=== PATIENT | female | born 2000 | race Caucasian/White ===

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

== ENCOUNTER → 2023-08-12 | Outpatient (CLI) | payer BC ==
--- NOTE | 2023-08-12 13:41 | P.SLEEP ---
History of Present Illness DATE: 08/12/2023 CONSULTATION/NEW PATIENT EVALUATION HISTORY OF PRESENT ILLNESS/SLEEP-WAKE EVALUATION: 22-year-old lady had been evaluated in the sleep center for possible obstructive sleep apnea hypopnea syndrome. SLEEP SCHEDULE: Usually sleep schedule from midnight until 10 AM on weekdays and from 1 AM until noon on weekend. FALLING ASLEEP: Patient does have difficulties with falling asleep, has TV set and bedroom. DURING SLEEP: Patient snores, sleeps on the side of [place] position, has difficulties to sleep on the back. Patient wakes up from sleep 3 times with 2 episodes of nocturia. No history of hypnogogical hallucinations, sleep paralysis, or cataplexy. DURING THE DAY/WAKE STATE: Patient has difficulties to put pretension, has problems with memory, concentration, anxiety. Pelican sleepiness scale is 7. Patient may take nap at 2 PM. PAST MEDICAL HISTORY: Asthma. PAST SURGICAL HISTORY: None. MEDICATIONS: Fluticasone, control pill. SOCIAL HISTORY: Negative for smoking or using alcohol. FAMILY HISTORY: Sleep apnea, diabetes. REVIEW OF SYSTEMS: Snoring, multiple awakenings from sleep, difficulties to initiate sleep. No fevers. No double vision. No recent chest pain. No shortness of breath. No abdominal pain. No bleeding episodes. No blood in urine. No seizure episodes. PHYSICAL EXAMINATION: GENERAL: A pleasant patient without any distress. VITAL SIGNS: BP 117/79 , HR 97 , RR 16 , weight 271.4 pounds, height 5 foot three quarters inches, body mass index 47.7 . HEENT: PERRLA, EOMI. Evaluation of oropharynx showed tongue protrudes midline, low position of soft palate Mallampati 2-3, wide pillars. NECK: Supple. No JVD. Thyroid is not palpable. 17 inches in circumference. LUNGS: Clear to percussion and to auscultation. Good air exchange. No wheezing or rhonchi. HEART: S1, S2 regular. No murmurs, gallops or rubs. ABDOMEN: Soft and nontender. Bowel sounds are present. No organomegaly appreciated. EXTREMITIES: No clubbing or cyanosis. T[employer] MANAGER: Awake, alert, and oriented x3. Cranial nerves 2 to 7 intact. There is no fasciculation or atrophy noted. No focal deficits observed. ASSESSMENT: 1. Snoring, multiple awakenings from sleep, small oropharyngeal airspace, wide neck. Possible obstructive sleep apnea hypopnea syndrome. 2. Difficulties to initiate sleep, psychophysiological insomnia. 3. Asthma. 4. Morbid obesity BMI 47.7. PLAN: 1. Polysomnography for evaluation of patient's breathing during sleep. 2. Following plan after reading sleep test 3. Preferable position during sleep on the side. 4. No driving if patient feels any sleepiness. Patient is aware of civil and criminal liability for unsafe driving. 5. Sleep hygiene with regular sleep time for at least 7.5-8 hours. 6. Watching and losing weight. Thank you very much for referring this patient for consultation. Sincerely, Jaswinder Cardona MD, PhD, FAASM. Diplomat of [place] [employer], Sleep Medicine Board by [place] [employer] [place] [employer] [facility] [place] Past Medical History Past Medical History: No Reported History Additional Past Medical History / Comment(s): PAST ACCOUNTS RECEIVABLE ACCOUNTANT HISTORY: She has no history of STDs. She states she has completed her HPV vaccination series. History of Any Multi-Drug Resistant Organisms: None Reported Past Surgical History: No Surgical Hx Reported Past Psychological History: Anxiety Additional Psychological History / Comment(s): She has never needed medical treatment for anxiety. She states the anxiety has improved. Past Alcohol Use History: None Reported Past Drug Use History: None Reported - Past Family History Mother Family Medical History: Hyperlipidemia Father Family Medical History: No Reported History Additional Family Medical History / Comment(s): Paternal aunt had breast cancer. Medications and Allergies Home Medications Medication Instructions Recorded Confirmed Type norgestimate-ethinyl estradioL 1 each PO DAILY #84 tablet 07/11/19 Rx [Tri-Sprintec Tablet] Allergies Allergy/AdvReac Type Severity Reaction Status Date / Time No Known Allergies Allergy Unverified 07/11/19 10:08 Sleep Note - Sleep Note Sleep Note: Temperature: Pulse Rate: Respiratory Rate: Blood Pressure: SpO2: Height: Weight: BMI: Neck Circumference:
== END ==
LOC: 3 N SLEEP 13:04
PROVIDERS: ATTEND Internal Medicine
DX: R06.83 Snoring (principal); F51.04 Psychophysiologic insomnia; J45.909 Unspecified asthma, uncomplicated; J39.2 Other diseases of pharynx; E66.01 Morbid (severe) obesity due to excess calories; Z68.42 Body mass index [BMI] 45.0-49.9, adult; Z79.51 Long term (current) use of inhaled steroids
CPT/HCPCS: 99202